=== PATIENT | female | born 1990 ===

== ENCOUNTER 2017-12-15 09:19 | Day surgery (SDC) | payer OTHER ==
[~2017-12-15] VITALS: Ht 165.1 cm; Wt 76.0 kg
[2017-12-15] MEDS ORDERED: LIALDA 1.2 GM1.2 GM PO (10:15)
[2017-12-15] MEDS ORDERED: PREDNISONE 5MG5 MG PO (10:15)
[2017-12-15] MEDS ORDERED: VALU-DRYL ALLER25 MG PO (10:16)
[2017-12-15] MEDS ORDERED: GAS RELIEF 8080 MG PO (10:18)
[2017-12-15] MEDS ORDERED: NORCO 325 MG-51 TAB PO (10:18)
[2017-12-15] MEDS ORDERED: MONONESSA 35 MC1 TA1 PO (10:19)
[2017-12-15] MEDS ORDERED: IBU800 M1 PO (10:20)
[2017-12-15] MEDS ORDERED: NIZORAL SHAMPO120 M1 TP (10:20)
[2017-12-15] MEDS ORDERED: ZANTAC 150MG T150 MG PO (10:21)
[2017-12-15] MEDS ORDERED: ZOFRAN 4MG T4 MG/TAB PO (10:22)
[2017-12-15] MEDS ORDERED: BENTYL 10MG10 MG/CAP PO (10:22)
[2017-12-15] MEDS ORDERED: PROAIR HFA0.09 MG/AC IH (10:23)
[2017-12-15 10:54] VITALS: BP 130/91; PULSE 80; TEMP 98.6
[2017-12-15 11:48] VITALS: BP 116/78; PULSE 77; TEMP 98
[2017-12-15 12:00] VITALS: BP 106/73; PULSE 80
[2017-12-15 12:15] VITALS: BP 107/82; PULSE 69
[2017-12-15 12:30] VITALS: BP 122/89; PULSE 73
[2017-12-15 12:45] VITALS: BP 116/79; PULSE 76
== END 2017-12-15 12:55 | disposition home or self-care (01) ==
LOC: SDCO 09:19
DX: K51.90 Ulcerative colitis, unspecified, without complications (principal); K92.1 Melena; F41.9 Anxiety disorder, unspecified; K59.00 Constipation, unspecified; K29.70 Gastritis, unspecified, without bleeding; Z88.1 Allergy status to other antibiotic agents; Z88.6 Allergy status to analgesic agent; Z86.19 Personal history of other infectious and parasitic diseases; Z83.79 Family history of other diseases of the digestive system
CPT/HCPCS: J2250; J2405; J3010; J7030

== ENCOUNTER → 2018-07-25 | Outpatient (CLI) | payer OTHER ==
[~2018-07-25] MED LIST: BENTYL 10MG10 MG/CAP PO; GAS RELIEF 8080 MG PO; IBU800 M1 PO; LIALDA 1.2 GM1.2 GM PO; MONONESSA 35 MC1 TA1 PO; NIZORAL SHAMPO120 M1 TP; NORCO 325 MG-51 TAB PO; PREDNISONE 5MG5 MG PO; PROAIR HFA0.09 MG/AC IH; VALU-DRYL ALLER25 MG PO; ZANTAC 150MG T150 MG PO; ZOFRAN 4MG T4 MG/TAB PO
== END ==
LOC: COL.RAD 14:02
DX: G43.109 Migraine with aura, not intractable, without status migrainosus (principal); M54.2 Cervicalgia

== ENCOUNTER → 2018-09-18 | Outpatient (CLI) | payer OTHER | LOC: MHCPAIN 08:14 | DX: G89.29 Other chronic pain (principal); R51 Headache; M54.81 Occipital neuralgia | CPT/HCPCS: G0463 ==

== ENCOUNTER → 2018-09-19 | Outpatient (CLI) | payer OTHER | LOC: MHCPAIN 08:45 | DX: M79.18 Myalgia, other site (principal) | CPT/HCPCS: J1040 ==

== ENCOUNTER → 2019-01-15 | Outpatient (CLI) | payer OTHER | LOC: MHCPAIN 09:15 | DX: G89.29 Other chronic pain (principal); R51 Headache; M47.812 Spondylosis without myelopathy or radiculopathy, cervical region | CPT/HCPCS: G0463 ==

== ENCOUNTER → 2019-01-30 | Outpatient (CLI) | payer OTHER | LOC: MHCPAIN 09:07 | DX: M79.18 Myalgia, other site (principal) | CPT/HCPCS: J1040 ==